=== PATIENT | male | born 1970 | race Caucasian/White ===

== ENCOUNTER 2021-03-08 09:34 | Day surgery (SDC) | payer MEDICARE, MEDICAID ==
[2021-02-27 12:40] LABS: BASOPHILS % (AUTO) 0.6 % (0-1); EOSINOPHILS # (AUTO) 0.1 X10'3 (0-0.9); EOSINOPHILS % (AUTO) 1.4 % (0-6); HEMATOCRIT 43.1 % (42.0-52.0); HEMOGLOBIN 14.7 g/dl (14.0-17.9); LYMPHOCYTES # (AUTO) 3.5 X10'3 (1.1-4.8); LYMPHOCYTES % (AUTO) 46.6 % (21-51); MEAN CORPUSCULAR HEMOGLOBIN 29.4 PG (27.0-31.0); MEAN CORPUSCULAR HGB CONC 34.1 g/dL (33.0-36.5); MEAN CORPUSCULAR VOLUME 86.1 FL (78-98); MEAN PLATELET VOLUME 7.4 FL (7.4-10.4); MONOCYTES # (AUTO) 0.5 X10'3 (0-0.9); MONOCYTES % (AUTO) 6.3 % (2-12); NEUTROPHILS # (AUTO) 3.4 X10'3 (1.8-7.7); NEUTROPHILS % (AUTO) 45.1 % (42-75); PLATELET COUNT 303 X10'3 (140-440); RED BLOOD COUNT 5.01 X10'6 (4.70-6.10); RED CELL DISTRIBUTION WIDTH 13.9 % (11.5-14.5); WHITE BLOOD COUNT 7.5 X10'3 (4.5-11.0)
[2021-02-27 12:54] LABS: ALANINE AMINOTRANSFERASE 34 U/L (12-78); ALBUMIN 3.6 G/DL (3.4-5.0); ALBUMIN/GLOBULIN RATIO 0.9 (1.1-1.5); ALKALINE PHOSPHATASE 80 IU/L (46-116); ANION GAP 9 (8-16); ASPARTATE AMINO TRANSFERASE 15 U/L (10-37); BLOOD UREA NITROGEN 2 MG/DL (7-18); BUN/CREATININE RATIO 2.7 (5.4-32.0); CALCIUM 8.2 MG/DL (8.5-10.1); CHLORIDE 101 MMOL/L (99-107); CREATININE 0.73 MG/DL (0.60-1.10); GLUCOSE 85 MG/DL (70-104); POTASSIUM 3.3 MMOL/L (3.5-5.1); SODIUM 140 MMOL/L (135-145); TOTAL PROTEIN 7.7 G/DL (6.4-8.2); eGFR > 90 ML/MIN
[2021-02-27 12:58] LABS: PARTIAL THROMBOPLASTIN TIME 26 SECONDS (22-32)
[~2021-03-08] VITALS: Ht 185.4 cm; Wt 102.3 kg
[2021-03-08] VITALS (10 sets, daily range): BP systolic 106–137; BP diastolic 43–81
[2021-03-08] MEDS ORDERED: diphenhydrAMINE 25mg capsule PO PRN (10:00)
[2021-03-08] MEDS ORDERED: LORazepam 0.5 MG tablet PO PRN (10:00)
[2021-03-08] MEDS ORDERED: nitroGLYCERIN 0.4mg SUBLingual tab SL PRN (10:00)
[2021-03-08] MEDS ORDERED: normal saline 1,000 ML IV SCH (10:00)
[2021-03-08 10:30] LABS: PARTIAL THROMBOPLASTIN TIME 25 SECONDS (22-32)
[2021-03-08] MEDS ORDERED: CLOP75TA15 PO (10:31)
[2021-03-08] MEDS ORDERED: ARIP10TA15 PO (10:31)
[2021-03-08] MEDS ORDERED: MULT-1085 PO (10:31)
[2021-03-08] MEDS ORDERED: METO-395 PO (10:31)
[2021-03-08] MEDS ORDERED: ASPI-611 PO (10:31)
[2021-03-08] MEDS ORDERED: ROSU40TA PO (10:31)
[2021-03-08] MEDS ORDERED: SUVO20TA PO (10:31)
[2021-03-08] MEDS ORDERED: GABA300C PO (10:31)
[2021-03-08] MEDS ORDERED: HYDR-3965 PO (10:31)
[2021-03-08] MEDS ORDERED: BACL10TA PO (10:31)
[2021-03-08] MEDS ORDERED: DIVA500T2 PO (10:31)
[2021-03-08] MEDS ORDERED: EZET10TA6 PO (10:31)
[2021-03-08] MEDS ORDERED: ESOM40CA49 PO (10:31)
[2021-03-08] MEDS ORDERED: FLO0.4C PO (10:31)
[2021-03-08 10:35] LABS: BASOPHILS % (AUTO) 0.6 % (0-1); EOSINOPHILS # (AUTO) 0.2 X10'3 (0-0.9); EOSINOPHILS % (AUTO) 2.2 % (0-6); HEMATOCRIT 45.5 % (42.0-52.0); HEMOGLOBIN 15.8 g/dl (14.0-17.9); LYMPHOCYTES # (AUTO) 3.8 X10'3 (1.1-4.8); LYMPHOCYTES % (AUTO) 48.7 % (21-51); MEAN CORPUSCULAR HEMOGLOBIN 29.8 PG (27.0-31.0); MEAN CORPUSCULAR HGB CONC 34.7 g/dL (33.0-36.5); MEAN CORPUSCULAR VOLUME 85.9 FL (78-98); MEAN PLATELET VOLUME 7.5 FL (7.4-10.4); MONOCYTES # (AUTO) 0.4 X10'3 (0-0.9); MONOCYTES % (AUTO) 5.4 % (2-12); NEUTROPHILS # (AUTO) 3.4 X10'3 (1.8-7.7); NEUTROPHILS % (AUTO) 43.1 % (42-75); PLATELET COUNT 304 X10'3 (140-440); RED BLOOD COUNT 5.29 X10'6 (4.70-6.10); RED CELL DISTRIBUTION WIDTH 13.7 % (11.5-14.5); WHITE BLOOD COUNT 7.8 X10'3 (4.5-11.0)
[2021-03-08 10:39] LABS: ALBUMIN 3.7 G/DL (3.4-5.0); ANION GAP 13 (8-16); BLOOD UREA NITROGEN 4 MG/DL (7-18); BUN/CREATININE RATIO 4.9 (5.4-32.0); CALCIUM 8.5 MG/DL (8.5-10.1); CHLORIDE 102 MMOL/L (99-107); CREATININE 0.81 MG/DL (0.60-1.10); GLUCOSE 95 MG/DL (70-104); POTASSIUM 3.7 MMOL/L (3.5-5.1); SODIUM 140 MMOL/L (135-145); TOTAL CARBON DIOXIDE 24.6 MMOL/L (24-32); eGFR > 90 ML/MIN
[2021-03-08] MEDS ORDERED: midazolam 1 mg/ML 2ml injection ONE (11:53)
[2021-03-08] MEDS ORDERED: LIDOcaine 1% (10mg/ml)w/preservative injection 20ml MDV ONE (11:53)
[2021-03-08] MEDS ORDERED: fentaNYL/PF 50MCG/1 ML 2ML syringe ONE (11:53)
[2021-03-08] MEDS ORDERED: iohexol 350MG/ML 100ml bottle IV ONE (11:54)
[2021-03-08] MEDS ORDERED: iohexol 350 MG/ML 50ML vial IV ONE (11:54)
[2021-03-08] MEDS ORDERED: HYDROcodone/acetaminophen 10/325mg tab PO PRN (13:35)
[2021-03-08] MEDS ORDERED: OXAZEpam 15mg capsule PO PRN (13:35)
[2021-03-08] MEDS ORDERED: proCHLORperazine 10 MG/2 ml inj IV PRN (13:35)
[2021-03-08] MEDS ORDERED: ondansetron/PF 4mg/2ml inj IV PRN (13:35)
[2021-03-08] MEDS ORDERED: HYDROcodone/acetaminophen 5mg/325mg tablet PO PRN (13:35)
[2021-03-08] MEDS ORDERED: acetaminophen 325mg tablet PO PRN (13:35)
== END 2021-03-08 18:35 | disposition home or self-care (01) ==
LOC: SSTAY O 09:34
PROVIDERS: ATTEND Internal Medicine Cardiovascular Disease
DX: R94.39 Abnormal result of other cardiovascular function study (principal); R07.89 Other chest pain; I25.10 Atherosclerotic heart disease of native coronary artery without angina pectoris; G47.33 Obstructive sleep apnea (adult) (pediatric); F31.9 Bipolar disorder, unspecified; N40.1 Benign prostatic hyperplasia with lower urinary tract symptoms; I25.2 Old myocardial infarction; I10 Essential (primary) hypertension; K21.9 Gastro-esophageal reflux disease without esophagitis; E78.5 Hyperlipidemia, unspecified; F17.210 Nicotine dependence, cigarettes, uncomplicated; F12.90 Cannabis use, unspecified, uncomplicated; Z88.5 Allergy status to narcotic agent; Z88.8 Allergy status to other drugs, medicaments and biological substances; Z96.653 Presence of artificial knee joint, bilateral; Z96.611 Presence of right artificial shoulder joint; Z79.899 Other long term (current) drug therapy
CPT/HCPCS: 36415; 71046; 80048; 80053; 83880; 84484; 85025; 85610; 85730; 93005; 93458; 99152; C1760; C1769; J1644; J2250; J3010; J3490; J7030; Q0163; Q9967; A4620; A6258